=== PATIENT | female | born 1955 | race Hispanic/Latino ===

== ENCOUNTER 2018-10-20 06:16 | Day surgery (SDC) | payer MEDICARE ==
[2018-10-20] VITALS (7 sets, daily range): BP systolic 78–140; BP diastolic 33–82
[~2018-10-20] VITALS: Ht 154.9 cm; Wt 59.1 kg
[2018-10-20] MEDS ORDERED: TRAM50TA4 PO (07:35)
[2018-10-20] MEDS ORDERED: BACL10TA PO (07:35)
[2018-10-20] MEDS ORDERED: PREG50 PO (07:35)
[2018-10-20] MEDS ORDERED: ATOR-2 PO (07:35)
[2018-10-20] MEDS ORDERED: OMEP40CA37 PO (07:35)
[2018-10-20] MEDS ORDERED: SUCR1TAB2 PO (07:35)
[2018-10-20] MEDS ORDERED: LISI2.5T2 PO (07:35)
[2018-10-20] MEDS ORDERED: INSLAN SQ ×2 (07:35)
[2018-10-20] MEDS ORDERED: METF-446 PO (07:35)
[2018-10-20] MEDS ORDERED: SODIUM CHLORIDE 0.9% 1000ML 1,000 ML IV ONE (07:36)
[2018-10-20] MEDS ORDERED: PROPOFOL 10 MG/ML 20ML VIAL IV ONE ×2 (07:50)
[2018-10-20] MEDS ORDERED: PHENYLEPHRINE HCL 10 MG/ML 1ML VIAL IV ONE (08:26)
== END 2018-10-20 08:55 | disposition home or self-care (01) ==
LOC: ENDO 06:16 → DAH 06:16 → ENDO 08:55
PROVIDERS: ATTEND Internal Medicine
DX: K29.50 Unspecified chronic gastritis without bleeding (principal); D3A.8 Other benign neuroendocrine tumors; K31.89 Other diseases of stomach and duodenum; E78.5 Hyperlipidemia, unspecified; I10 Essential (primary) hypertension; F41.9 Anxiety disorder, unspecified; F32.9 Major depressive disorder, single episode, unspecified; E11.9 Type 2 diabetes mellitus without complications; D64.9 Anemia, unspecified; M19.90 Unspecified osteoarthritis, unspecified site; Z98.890 Other specified postprocedural states; Z89.429 Acquired absence of other toe(s), unspecified side; Z79.4 Long term (current) use of insulin; Z79.899 Other long term (current) drug therapy; K29.70 Gastritis, unspecified, without bleeding; Z79.84 Long term (current) use of oral hypoglycemic drugs
CPT/HCPCS: 43238; 43239; 82948 ×2; 88173; 88305 ×3; 88312; A4215; A4606; J2370; J2704 ×2; J7030; 43232